=== PATIENT | male | born 1980 | race Caucasian/White ===

== ENCOUNTER → 2017-06-29 | Outpatient (CLI) | payer BC ==
[~2017-06-29] MED LIST: GADOXETATE DISODIUM (NON-WT BASED PROCEDURE) IV PRN
--- NOTE | 2017-06-30 08:10 | DIAGNOSTIC IMAGING REPORT ---
LIVER COMBO HISTORY: 37 years-old Male ABD PAIN acute lower left-sided abdominal pain. Follow-up study to assess liver lesion seen on CT. COMPARISON: CT abdomen and pelvis from [facility] 06/25/2017. TECHNIQUE: Multiplanar multisequence MRI of the liver was obtained both with and without the use of 10 mL Eovist FINDINGS: There are approximately 11 T2 hyperintense lesions scattered throughout the right and left hepatic lobes which demonstrate restricted diffusion (please see bookmarks). The largest lesion involves the inferior right hepatic lobe near the junction of segments V and measuring up to 4.8 x 3.9 x 3.1 cm in AP, transverse and craniocaudal dimensions respectively demonstrating well marginated mildly lobulated margins. 11 mm lesions are noted within the posterior right and medial left hepatic lobes with additional lesions measuring approximately 6 mm. The large lesion demonstrates discontinuous peripheral nodular enhancement with mild central filling on the delayed images compatible with hepatic hemangioma. Several smaller lesions demonstrate arterial enhancement suggesting flash filling hemangiomas. No washout identified. The liver morphology appears normal without contour nodularity. No biliary ductal dilation or ascites. The spleen is mildly enlarged, 14 cm in length. Gallbladder, kidneys and adrenal glands are unremarkable. Aorta appears normal in caliber. There is no bowel dilation. Imaged spine, soft tissues and central canal are within normal limits. The lung bases demonstrate no focal abnormality. IMPRESSION: 1. Multiple T2 hyperintense lesions throughout the liver with restricted diffusion, largest of which involves the inferior right hepatic lobe measuring up to 4.8 cm demonstrate imaging characteristics most compatible with hepatic hemangiomas. No suspicious lesions identified. 2. Normal-appearing morphology of the liver. No biliary ductal dilation. 3. Mild splenomegaly, 14 cm. The above report was generated using voice recognition software. It may contain grammatical, syntax or spelling errors. Electronically signed by: Jose Heath M.D. 06/30/2017 8:08 AM Dictated Date/Time: 06/30/2017 7:28 AM
== END | disposition home or self-care (01) ==
LOC: C.MRI 17:17
PROVIDERS: ATTEND Physician Assistant
DX: R93.5 Abnormal findings on diagnostic imaging of other abdominal regions, including retroperitoneum (principal)

== ENCOUNTER → 2017-07-07 | Outpatient (CLI) | payer BC ==
[2017-07-08 15:28] LABS: EBV EARLY ANTIGEN AB < 9.00 U/ML
== END | disposition home or self-care (01) ==
LOC: C.LABMFLN 08:07
PROVIDERS: ATTEND Family Medicine
DX: R16.1 Splenomegaly, not elsewhere classified (principal); N40.2 Nodular prostate without lower urinary tract symptoms

== ENCOUNTER → 2017-09-13 | Outpatient (CLI) | payer BC ==
[~2017-09-13] MED LIST changes: +GADAVIST IV PRN; -GADOXETATE DISODIUM (NON-WT BASED PROCEDURE) IV PRN; +PATIENT'S ALLERGY INFO NEEDS ENTERED SCH
--- NOTE | 2017-09-13 09:12 | DIAGNOSTIC IMAGING REPORT ---
PROSTATE MRI COMBO CLINICAL HISTORY: 37 years-old Male presenting with N40.2 Prostatic nodule visualized on outside CT scan.. TECHNIQUE: Multisequence, multiplanar MR imaging of the prostate was performed before and after the administration of intravenous contrast. Additional postprocessing was performed on a separate [employer] workstation by the radiologist for 3-D volumetric segmentation of the prostate and contouring of region(s) of interest (LUCAS) for targeting. IV contrast: 10 cc intravenous Gadavist COMPARISON: Outside CT scan dated 06/25/2017 FINDINGS: Prostate: The prostate measures 5.1 x 4.2 x 3.6 cm (DynaCAD prostate boundary segmentation volume 42.3 mL). Minimal changes of benign prostatic hyperplasia. Precontrast T1 weighted imaging demonstrates no evidence of intrinsic T1 hyperintensity to suggest hemorrhage. Within the left mid peripheral zone there is a 24 mm T2 bright lesion which abuts the capsule. This demonstrates no restricted water diffusion. This is bright on ADC map images. Signal characteristics strongly favor an inflammatory process. Clinical follow-up is advocated. Seminal vesicles normal. Bladder: Normal. Bowel: Visualized portion of the rectum normal. Peritoneum: No free fluid in the pelvis. Lymph nodes: No lymphadenopathy in the visualized portion of the pelvis. Vasculature: Iliac vessels patent. Abdominal wall: Normal. Osseous structures: Normal bone marrow signal intensity. IMPRESSION: 1. There are no lesions identified viewed as suspicious for prostatic carcinoma 2. Within the left mid peripheral zone there is a 24 mm T2 bright lesion abutting the capsule. This corresponds to the abnormality described on the outside CT scan. Signal enhancement characteristics strongly favor an inflammatory process. Clinical follow-up is advocated Electronically signed by: Jose Martin Luna M.D. 09/13/2017 9:11 AM Dictated Date/Time: 09/13/2017 8:51 AM
== END | disposition home or self-care (01) ==
LOC: C.MRIBC 06:55
PROVIDERS: ATTEND Urology
DX: N40.2 Nodular prostate without lower urinary tract symptoms (principal)

== ENCOUNTER → 2017-10-28 | Outpatient (CLI) | payer BC | END | disposition home or self-care (01) | LOC: C.PATHSPEC 12:33 | PROVIDERS: ATTEND Urology | DX: N40.2 Nodular prostate without lower urinary tract symptoms (principal) ==